=== PATIENT | male | born 1960 | race Hispanic/Latino ===

== ENCOUNTER 2017-07-18 08:07 | Inpatient (IN) | payer OTHER ==
[~2017-07-18] VITALS: Ht 172.7 cm; Wt 60.9 kg
[2017-07-18] VITALS (8 sets, daily range): BP systolic 111–151; BP diastolic 72–97
[2017-07-18] MEDS ORDERED: HYDROMORPHONE 1MG/1ML INJ IV STA (08:33)
[2017-07-18] MEDS ORDERED: ONDANSETRON HCL INJ 2 MG/ML VIAL IV STA ×3 (08:33→13:32)
[2017-07-18] MEDS ORDERED: DIATRIZOATE MEGL/DIATRIZOA SOD 30 ML BTL PO ONE (08:57)
[2017-07-18] MEDS ORDERED: HYDROMORPHONE 2MG/ML INJ IV ONE ×2 (09:00→13:45)
[2017-07-18 09:10] LABS: BASOPHILS % 0.1 % (0.0-1.0); HEMATOCRIT 47.5 % (38.2-49.6); HEMOGLOBIN 16.2 g/dL (14.0-18.0); LYMPHOCYTES # (AUTO) 0.8 (1.0-3.2); LYMPHOCYTES % 5.8 % (18.0-39.1); MEAN CORPUSCULAR HEMOGLOBIN 30.6 pg (28-32); MEAN CORPUSCULAR HGB CONC 34.1 g/dL (31-35); MEAN CORPUSCULAR VOLUME 89.6 fL (81-99); MONOCYTES # (AUTO) 1.2 (0.2-0.8); MONOCYTES % 8.6 % (4.4-11.3); NEUTROPHILS # (AUTO) 11.9 (2.1-6.9); NEUTROPHILS % 85.3 % (38.7-80.0); PLATELET COUNT 393 x10e3/uL (140-360); RED CELL DISTRIBUTION WIDTH 12.6 % (11.7-14.4)
[2017-07-18 09:22] LABS: ALANINE AMINOTRANSFERASE 40 IU/L (0-55); ALBUMIN 3.9 g/dL (3.5-5.0); ALBUMIN/GLOBULIN RATIO 0.9 (0.8-2.0); ALKALINE PHOSPHATASE 98 IU/L (40-150); AMYLASE 13 U/L (25-125); ANION GAP 15.4 mmol/L (8-16); BLOOD UREA NITROGEN 13 mg/dL (7-26); BUN/CREATININE RATIO 21 (6-25); CALCIUM 9.1 mg/dL (8.4-10.2); CARBON DIOXIDE 26 mmol/L (22-29); CHLORIDE 89 mmol/L (98-107); CREATININE, SERUM 0.62 mg/dL (0.72-1.25); EST GLOMERULAR FILTRATION RATE > 60 ML/MIN (60-); GLUCOSE 113 mg/dL (74-118); POTASSIUM 4.4 mmol/L (3.5-5.1); SODIUM 126 mmol/L (136-145)
[2017-07-18 09:25] LABS: LIPASE < 4 U/L (8-78)
[2017-07-18] MEDS: SODIUM CHLORIDE 0.9% 250ML IRRIG IR SCH ×4 (09:30→19:33)
--- NOTE | 2017-07-18 10:20 | Diagnostic Imaging Report ---
PROCEDURE: A single AP view of the chest. COMPARISON: None. INDICATIONS: SWOLLEN ABDOMEN, SHORTNESS OF BREATH FINDINGS: Lines/tubes: Enteric feeding catheter is present with the tip projecting over the expected region of the stomach. Lungs: Elevation of the left hemidiaphragm. Bibasilar atelectasis. Pleura: There is no pleural effusion or pneumothorax. Heart and mediastinum: The heart and the mediastinum are unremarkable. Bones: No acute bony abnormality. Abdomen: Multiple distended loops of colon are present. IMPRESSION: Distended loops of colon, concerning for obstruction. CT abdomen and pelvis may provide additional information for further characterization. Dictated by: Kavon Shepard M.D. on 07/18/2017 at 10:30 Electronically approved by: Kavon Shepard M.D. on 07/18/2017 at 10:30
--- NOTE | 2017-07-18 10:30 | Diagnostic Imaging Report ---
PROCEDURE:X-RAY ABDOMEN - KUB COMPARISON:None. INDICATIONS:NG TUBE PLACEMENT FINDINGS: Enteric feeding catheter with tip projecting over the expected region of the gastric body. Multiple distended loops of colon and small bowel. There are no calcifications projected over the renal shadows, expected course of the ureters or bladder. There are no acute osseous abnormalities. The lung bases are clear. CONCLUSION: Concerns for distal colon obstruction. CT of the abdomen and pelvis may provide additional information for further characterization. Dictated by: Kavon Shepard M.D. on 07/18/2017 at 10:39 Electronically approved by: Kavon Shepard M.D. on 07/18/2017 at 10:39
--- NOTE | 2017-07-18 12:58 | Diagnostic Imaging Report ---
PROCEDURE: CT ABDOMEN AND PELVIS WITH CONTRAST TECHNIQUE: The abdomen and pelvis were scanned utilizing a multidetector helical scanner from the diaphragm to the lesser trochanter after the IV administration of 100 cc of Isovue 370 and the oral administration of dilute Gastrografin. Coronal and sagittal multiplanar reformations were obtained. COMPARISON: None. INDICATIONS: SMALL BOWEL OBSTRUCTION FINDINGS: LOWER THORAX: Atelectatic changes in bilateral lower lobes. Extensive tree in bud opacities involving the right middle and bilateral lower lobes. Bronchial wall thickening, predominantly in the posterior right lower lobe. Eventration of the left hemidiaphragm. HEPATOBILIARY: No focal hepatic lesions. No biliary ductal dilatation. Gallbladder is unremarkable. SPLEEN: No splenomegaly. PANCREAS: No focal masses or ductal dilatation. ADRENALS: No adrenal nodules. KIDNEYS/URETERS: No hydronephrosis, stones, or solid mass lesions. PELVIC ORGANS/BLADDER: Bladder is moderately distended and shows no focal lesions. Dystrophic calcifications in the prostate. PERITONEUM / RETROPERITONEUM: Trace free fluid in the pelvic cul-de-sac LYMPH NODES: No lymphadenopathy. VESSELS: Unremarkable. GI TRACT: Marked dilation of the transverse colon, predominantly at the splenic flexure, measuring approximately 15 cm in diameter. Moderate dilation of the distal ascending colon. The ascending colon is on the upper limit of normal, measuring 6 cm in diameter (series 2, image 57 and sagittal image 36). Marked dilation of multiple small bowel loops involving predominantly the ileum, with maximal measurement of approximately 6.5 cm. The duodenum and jejunum are normal in caliber. The descending colon is decompressed, with a transition point/abrupt beak like narrowing noted in the proximal descending colon (series 2, image 35 and coronal image 61). Swirling of vessels is noted at this location. Stomach is not dilated. There is an enteric tube in place, with tip in the fundus/body. BONES AND SOFT TISSUES: No aggressive lytic lesions. Soft tissues are unremarkable.. IMPRESSION: 1. large bowel obstruction extending to the small bowel, with transition point located in the proximal descending colon. No definite focal masses identified. Swirling of vessels is noted at this location. Findings are suspicious for volvulus. 2. Extensive bilateral lower lobe and right middle lobe tree in bud opacities, consistent with endobronchial spread of infection (including mycobacterial disease) or aspiration Basim Scott M.D. Dictated by: Basim Scott M.D. on 07/18/2017 at 13:07 Electronically approved by: Basim Scott M.D. on 07/18/2017 at 13:07
[2017-07-18] MEDS ORDERED: PIPER-TAZ 3.375 GM 50 ML IV STA (13:49)
[2017-07-18] MEDS ORDERED: ONDANSETRON HCL INJ 2 MG/ML VIAL IV PRN (14:00)
[2017-07-18] MEDS ORDERED: IOPAMIDOL 370 MG/ML 200 ML INFUS..BTL INJ ONE (14:32)
[2017-07-18] MEDS ORDERED: SODIUM CHLORIDE 0.9% 50ML 50 ML ONE ×3 (14:32→22:12)
[2017-07-18] MEDS ORDERED: RISPERIDONE1 MG PO (15:43)
[2017-07-18] MEDS ORDERED: LOXAPINE10 MG PO (15:43)
[2017-07-18] MEDS ORDERED: METOPROLOL TARTRATE INJ 1 MG/ML VIAL IV PRN (15:45)
[2017-07-18] MEDS: HYDROMORPHONE 2MG/ML INJ IV PRN (16:05)
--- OUTSIDE RECORDS SUMMARY | 2017-07-18 16:05 | XMS REPORT ---
Author Author [facility] Address Unknown Phone Unavailable Care Team Providers Care Cruise Guide Name Role Phone BLAKE WHITE Unavailable Unavailable Problems This patient has no known problems. Allergies, Adverse Reactions, Alerts This patient has no known allergies or adverse reactions. Medications This patient has no known medications. Results Test Description Test Time Test Comments Text Results Atomic Results Result Comments ABDOMEN-1VIEW (KUB) [place] [address] Patient Name: TRENT RIVERA MR #: [id number] : 1960 Age/Sex: 56/M Req #: [id number] Adm Physician: Ordered by: BLAKE WHITE MD Report #: [id number] Location: ER Room/Bed: Procedure: [id number] DX/ABDOMEN-1VIEW (KUB) Exam Date: 07/18/17 Exam Time: 0945 REPORT STATUS: Signed PROCEDURE: X-RAY ABDOMEN - KUB COMPARISON: None. INDICATIONS: NG TUBE PLACEMENT FINDINGS: Enteric feeding catheter with tip projecting over the expected region of the gastric body. Multiple distended loops of colon and small bowel. There are no calcifications projected over the renal shadows, expected course of the ureters or bladder. There are no acute osseous abnormalities. The lung bases are clear. CONCLUSION: Concerns for distal colon obstruction. CT of the abdomen and pelvis may provide additional information for further characterization. Dictated by: Winston Jones M.D. on 07/18/2017 at 10:39 Electronically approved by: Winston Jones M.D. on 07/18/2017 at 10:39 Dictated By: WINSTON JONES MD 1039 Transcribed By: DAISY on 07/18/17 1039 COPY TO: BLAKE WHITE MD CHEST SINGLE (PORTABLE) [place] [address] Patient Name: TRENT RIVERA MR #: [id number] : 1960 Age/Sex: 56/M Req #: [id number] Adm Physician: Ordered by: BLAKE WHITE MD Report #: [id number] Location: ER Room/Bed: Procedure: [id number] DX/CHEST SINGLE (PORTABLE) Exam Date: 07/18/17 Exam Time: 0945 REPORT STATUS: Signed PROCEDURE: A single AP view of the chest. COMPARISON: None. INDICATIONS: SWOLLEN ABDOMEN, SHORTNESS OF BREATH FINDINGS: Lines/tubes: Enteric feeding catheter is present with the tip projecting over the expected region of the stomach. Lungs: Elevation of the left hemidiaphragm. Bibasilar atelectasis. Pleura: There is no pleural effusion or pneumothorax. Heart and mediastinum: The heart and the mediastinum are unremarkable. Bones: No acute bony abnormality. Abdomen: Multiple distended loops of colon are present. IMPRESSION: Distended loops of colon, concerning for obstruction. CT abdomen and pelvis may provide additional information for further characterization. Dictated by: Winston Jones M.D. on 07/18/2017 at 10:30 Electronically approved by: Winston Jones M.D. on at 10:30 Dictated By: WINSTON JONES MD 1030 Transcribed By: DAISY on 07/18/17 1030 COPY TO: BLAKE WHITE MD CT ABDOMEN/PELVIS W [facility] [address] [place] [address] Patient Name: TRENT RIVERA MR #: [id number] : 1960 Age/Sex: 56/M Req #: [id number] Adm Physician: Ordered by: BLAKE WHITE MD Report #: [id number] Location: ER Room/Bed: Procedure: [id number] CT/CT ABDOMEN/PELVIS W Exam Date: 07/18/17 Exam Time: 1206 REPORT STATUS: Signed PROCEDURE: CT ABDOMEN AND PELVIS WITH CONTRAST TECHNIQUE: The abdomen and pelvis were scanned utilizing a multidetector helical scanner from the diaphragm to the lesser trochanter after the IV administration of 100 cc of Isovue 370 and the oral administration of dilute Gastrografin. Coronal and sagittal multiplanar reformations were obtained. COMPARISON: None. INDICATIONS: SMALL BOWEL OBSTRUCTION FINDINGS: LOWER THORAX: Atelectatic changes in bilateral lower lobes. Extensive tree in bud opacities involving the right middle and bilateral lower lobes. Bronchial wall thickening, predominantly in the posterior right lower lobe. Eventration of the left hemidiaphragm. HEPATOBILIARY: No focal hepatic lesions. No biliary ductal dilatation. Gallbladder is unremarkable. SPLEEN : No splenomegaly. PANCREAS: No focal masses or ductal dilatation. ADRENALS: No adrenal nodules. KIDNEYS/URETERS: No hydronephrosis, stones, or solid mass lesions. PELVIC ORGANS/BLADDER: Bladder is moderately distended and shows no focal lesions. Dystrophic calcifications in the prostate. PERITONEUM / RETROPERITONEUM: Trace free fluid in the pelvic cul-de-sac LYMPH NODES: No lymphadenopathy. VESSELS: Unremarkable. GI TRACT: Marked dilation of the transverse colon, predominantly at the splenic flexure, measuring approximately 15 cm in diameter. Moderate dilation of the distal ascending colon. The ascending colon is on the upper limit of normal, measuring 6 cm in diameter (series 2, image 57 and sagittal image 36). Marked dilation of multiple small bowel loops involving predominantly the ileum, with maximal measurement of approximately 6.5 cm. The duodenum and jejunum are normal in caliber. The descending colon is decompressed, with a transition point/abrupt beak like narrowing noted in the proximal descending colon (series 2, image 35 and coronal image 61). Swirling of vessels is noted at this location. Stomach is not dilated. There is an enteric tube in place, with tip in the fundus/body. BONES AND SOFT TISSUES: No aggressive lytic lesions. Soft tissues are unremarkable.. IMPRESSION: 1. large bowel obstruction extending to the small bowel, with transition point located in the proximal descending colon. No definite focal masses identified. Swirling of vessels is noted at this location. Findings are suspicious for volvulus. 2. Extensive bilateral lower lobe and right middle lobe tree in bud opacities, consistent with endobronchial spread of infection (including mycobacterial disease) or aspiration Sherita Scott M.D. Dictated by: Sherita Scott M.D. on 07/18/2017 at 13:07 Electronically approved by: Sherita Scott M.D. on 2017 at 13:07 Dictated By: SHERITA SCOTT MD 1307 Transcribed By: DAISY on 1307 COPY TO: BLAKE WHITE MD
[2017-07-18] MEDS: SODIUM CHLORIDE 0.9% 1000ML 1,000 ML IV SCH ×2 (17:56→23:00)
[2017-07-18] MEDS: FAMOTIDINE 20 MG/2 ML VIAL IV SCH (17:57)
[2017-07-18] MEDS ORDERED: ONDANSETRON HCL INJ 2 MG/ML VIAL ONE (18:22)
[2017-07-18] MEDS ORDERED: ROCURONIUM BROMIDE 10 MG/ML 5ML VIAL ONE (18:22)
[2017-07-18] MEDS ORDERED: SUCCINYLCHOLINE 200 MG/10 ML SYR ONE (18:22)
[2017-07-18] MEDS ORDERED: LIDOCAINE HCL 2% LOCAL INJ 5 ML SDV VIAL INJ ONE (18:22)
[2017-07-18] MEDS ORDERED: DEXAMETHASONE SOD PHOS INJ 4 MG/ML VIAL ONE (18:22)
[2017-07-18] MEDS ORDERED: PROPOFOL IV EMULSION 10 MG/ML 20 ML VIAL ONE (18:22)
[2017-07-18] MEDS ORDERED: SEVOFLURANE INHAL SOLN 250 ML PEN BTL ONE (18:22)
[2017-07-18] MEDS ORDERED: FENTANYL CITRATE/PF 100MCG/2 ML INJ ONE (18:30)
[2017-07-18] MEDS ORDERED: MIDAZOLAM HCL 2 MG/2 ML VIAL ONE ×2 (18:30→22:17)
[2017-07-18] MEDS ORDERED: KETAMINE HCL INJ 50 MG/ML 10 ML VIAL ONE (18:30)
[2017-07-18] MEDS ORDERED: HEPARIN SOD/SOD CHLORIDE 1,000 ML ONE (18:44)
[2017-07-18] MEDS ORDERED: CEFOXITIN 1GM/ DEXTROSE 50ML 50 ML IV ONE (19:06)
[2017-07-18] MEDS ORDERED: SODIUM CHLORIDE 0.9% 250ML 0 ML ONE (19:46)
[2017-07-18] MEDS ORDERED: VECURONIUM BROMIDE FOR INJ 20 MG VIAL ONE (20:07)
[2017-07-18] MEDS ORDERED: ALBUMIN HUMAN 50 ML IV ONE (20:18)
[2017-07-18 21:52] LABS: ABG HCO3 25 mmol/L (23-28); ABG PCO2 50 mmHg (41-51); ABG PH 7.31 (7.31-7.41); ABG PO2 151 mmHg (80-105)
[2017-07-18] MEDS: PROPOFOL IV EMULSION 10 MG/ML 50 ML VIAL IV PRN (22:00)
[2017-07-18] MEDS ORDERED: PROPOFOL IV EMULSION 10MG/ML 100 ML ONE (22:17)
--- NOTE | 2017-07-18 22:27 | Diagnostic Imaging Report ---
EXAM: CHEST SINGLE (PORTABLE), AP 1 view ORDER DATE: 07/18/2017 9:59 PM Time stamp on exam: 2214 hours INDICATION: Central line placement COMPARISON: AP view of the chest June 17, 2017 at 0958 hours FINDINGS: LINES/TUBES: Interval placement of right internal jugular vein central line with tip terminating in the expected location of the distal superior vena cava. The nasal/orogastric tube terminates in the expected location of the fundus of the stomach. Interval placement of endotracheal tube that terminates 4.5 cm above the evelyn. LUNGS: Stable bilateral interstitial thickening. Mild left lower lobe atelectasis. PLEURA: No effusions or pneumothorax. HEART AND MEDIASTINUM: Normal size and contour. BONES AND SOFT TISSUES: Interval decompression of the stomach. Midline abdominal cynthia. IMPRESSION: 1. Interval placement of right internal jugular vein central line. No pneumothorax. The endotracheal tube terminates 4.5 cm above the evelyn. 2. Stable appearance of the lungs. 3. Interval decompression of the stomach. Signed by: Dr. Kelsea James M.D. on 07/18/2017 10:23 PM
[2017-07-19] VITALS (84 sets, daily range): BP systolic 93–139; BP diastolic 50–76
[2017-07-19] MEDS ORDERED: VANCOMYCIN 1GM/NS 250 ML 250 ML IV ONE (01:15)
[2017-07-19 01:28] LABS: ABG HCO3 22 mmol/L (23-28); ABG PCO2 46 mmHg (41-51); ABG PH 7.29 (7.31-7.41); ABG PO2 84 mmHg (80-105)
--- NOTE | 2017-07-19 01:30 | Consultation ---
DATE OF CONSULTATION: July 18, 2017 CHIEF COMPLAINT: Abdominal pain. HISTORY OF PRESENT ILLNESS: Patient is 56-year-old male with history of schizophrenic disorder, complaining of 2-day history of abdominal distention and pain with nausea, no vomiting. He has decreased bowel movement. No fever or chills. The patient gave a history of perforated colon requiring colostomy, which was reversed a few years back. PAST MEDICAL HISTORY: As mentioned is positive for schizophrenia. SURGICAL HISTORY: Positive for colon perforation with colostomy and reversal. ALLERGIES: HE HAS NO KNOWN DRUG ALLERGIES. SOCIAL HABITS: No smoking or alcohol abuse. REVIEW OF SYSTEMS: No current chest pain or shortness of breath. PHYSICAL EXAMINATION: VITAL SIGNS: Afebrile. Blood pressure 130/80 with a pulse 120. GENERAL: He is awake and alert, responsive, in moderate discomfort. HEENT: Sclerae are nonicteric. NECK: Supple. LUNGS: Clear. HEART: Regular rate and rhythm. No murmurs. ABDOMEN: Distended, tympanic with some guarding voluntarily, but no focal tenderness or rebound. EXTREMITIES: Without cyanosis or edema. LABORATORY DATA: White cell count is 14, hemoglobin of 16. Creatinine of 0.6. Liver function tests, bilirubin of 2.3, lipase is less than 4. CT of the abdomen showed colonic obstruction with proximal transverse colonic diameter to 15 cm. Possible aspiration pneumonia. ASSESSMENT: Colonic obstruction with possible aspiration pneumonia. PLAN: N.p.o. NG tube decompression. Patient may need exploratory laparotomy and colostomy. Thank you. Job#: [id number]
[2017-07-19] MEDS: FENTANYL CITRATE/PF 100MCG/2 ML INJ IV PRN ×2 (02:00→04:00)
[2017-07-19] MEDS: SODIUM CHLORIDE 0.9% 250ML IRRIG IR SCH ×7 (02:15→19:00)
[2017-07-19 02:55] LABS: ABG HCO3 25 mmol/L (23-28); ABG PCO2 40 mmHg (41-51); ABG PO2 95 mmHg (80-105)
[2017-07-19] MEDS: HYDROMORPHONE 2MG/ML INJ IV PRN ×2 (05:30→11:57)
[2017-07-19 05:32] LABS: BASOPHILS % 0.2 % (0.0-1.0); HEMATOCRIT 43.8 % (38.2-49.6); HEMOGLOBIN 14.8 g/dL (14.0-18.0); LYMPHOCYTES # (AUTO) 0.6 (1.0-3.2); LYMPHOCYTES % 5.9 % (18.0-39.1); MEAN CORPUSCULAR HEMOGLOBIN 30.6 pg (28-32); MEAN CORPUSCULAR HGB CONC 33.8 g/dL (31-35); MEAN CORPUSCULAR VOLUME 90.5 fL (81-99); MONOCYTES # (AUTO) 0.9 (0.2-0.8); MONOCYTES % 8.2 % (4.4-11.3); NEUTROPHILS # (AUTO) 9.4 (2.1-6.9); NEUTROPHILS % 85.5 % (38.7-80.0); PLATELET COUNT 344 x10e3/uL (140-360); RED BLOOD COUNT 4.84 x10e6/uL (4.3-5.7); RED CELL DISTRIBUTION WIDTH 12.8 % (11.7-14.4)
[2017-07-19 05:45] LABS: INR 1.18; PROTHROMBIN TIME 15.6 seconds (11.9-14.5)
[2017-07-19 05:46] LABS: PARTIAL THROMBOPLASTIN TIME 33.5 seconds (23.8-35.5)
[2017-07-19 05:52] LABS: ALANINE AMINOTRANSFERASE 23 IU/L (0-55); ALBUMIN 2.7 g/dL (3.5-5.0); ALKALINE PHOSPHATASE 55 IU/L (40-150); ANION GAP 13.1 mmol/L (8-16); BILIRUBIN,DIRECT 0.7 mg/dL (0.0-5.0); BLOOD UREA NITROGEN 7 mg/dL (7-26); BUN/CREATININE RATIO 13 (6-25); CALCIUM 7.4 mg/dL (8.4-10.2); CARBON DIOXIDE 25 mmol/L (22-29); CHLORIDE 97 mmol/L (98-107); CREATININE, SERUM 0.53 mg/dL (0.72-1.25); EST GLOMERULAR FILTRATION RATE > 60 ML/MIN (60-); GLUCOSE 82 mg/dL (74-118); LACTATE DEHYDROGENASE 165 IU/L (125-220); MAGNESIUM 1.5 MG/DL (1.3-2.1); POTASSIUM 4.1 mmol/L (3.5-5.1); SODIUM 131 mmol/L (136-145)
[2017-07-19 06:12] LABS: THYROID STIMULATING HORMONE 2.101 uIU/mL (0.350-4.940)
--- NOTE | 2017-07-19 06:38 | Diagnostic Imaging Report ---
EXAM: CHEST SINGLE (PORTABLE), AP 1 view ORDER DATE: 07/19/2017 5:00 AM Time stamp on exam: 0559 hours INDICATION: Pneumonia COMPARISON: AP view of the chest July 18, 2017 FINDINGS: LINES/TUBES: Stable endotracheal tube, right internal jugular vein central line and nasal/orogastric tube. LUNGS: Mild bibasilar atelectasis and interstitial thickening. PLEURA: No effusions or pneumothorax. HEART AND MEDIASTINUM: Normal size and contour. BONES AND SOFT TISSUES: Midline abdominal cynthia. IMPRESSION: No interval change. Signed by: Dr. Kelsea James M.D. on 07/19/2017 6:35 AM
[2017-07-19] MEDS ORDERED: VANCOMYCIN 1GM/NS 250 ML 250 ML ONE ×2 (07:04→07:16)
[2017-07-19] MEDS ORDERED: CEFOXITIN SOD 1 GM VIAL ONE (07:04)
[2017-07-19] MEDS: PIPER-TAZ 3.375 GM 50 ML IV SCH ×3 (07:21→22:01)
[2017-07-19] MEDS: CEFOXITIN 1GM/ DEXTROSE 50ML 50 ML IV SCH ×2 (07:21)
[2017-07-19] MEDS: IPRATROPIUM BROMIDE 0.02% 2.5 ML NEB NEB SCH ×4 (08:11→23:25)
[2017-07-19] MEDS: FAMOTIDINE 20 MG/2 ML VIAL IV SCH ×2 (09:00→16:55)
[2017-07-19] MEDS: PROPOFOL IV EMULSION 10 MG/ML 50 ML VIAL IV PRN (09:20)
[2017-07-19] MEDS ORDERED: PROPOFOL IV EMULSION 10MG/ML 100 ML ONE (09:23)
[2017-07-19] MEDS: SODIUM CHLORIDE 0.9% 1000ML 1,000 ML IV SCH (10:15)
[2017-07-19] MEDS ORDERED: ACETAMINOPHEN 650 MG SUPP PR ONE (11:34)
[2017-07-19] MEDS ORDERED: DEXTROSE 5%/0.9% SOD CHL 1,000 ML IV ONE (11:35)
[2017-07-19] MEDS: ACETAMINOPHEN 650 MG SUPP PR PRN ×2 (11:35→17:00)
[2017-07-19] MEDS: DEXTROSE 5%/0.9% SOD CHL 1,000 ML IV SCH ×2 (11:41→19:00)
--- NOTE | 2017-07-19 12:35 | Operative Report ---
DATE OF PROCEDURE: July 18, 2017 PREOPERATIVE DIAGNOSIS: Left colonic obstruction with massive proximal colon and small bowel dilatation. POSTOPERATIVE DIAGNOSIS: Left colonic obstruction with massive proximal colon and small bowel dilatation. OPERATIVE PROCEDURES: Exploratory laparotomy, left colectomy with transverse colostomy, and lysis of adhesions. SHOP TEACHER: None. ANESTHESIA: General endotracheal, . INDICATIONS: A 56-year-old male with 2-week history of progressive abdominal distention and decreased oral intake. The patient was seen in the emergency room with CT CAT showing massive dilatations of the transverse colon and right colon with narrowing of the descending colon consistent with obstruction. NG tube inserted without improvement of the abdominal distention. The patient's sister and family consented for the exploratory laparotomy and bowel resection and colostomy. PROCEDURE FINDINGS: Massive dilatation of the colon and small bowel with decompression of the stomach. The point of obstruction is in the mid descending colon from adhesions from prior surgery. There is evidence of volvulus of the small bowel from adhesion. DESCRIPTION OF PROCEDURE: The patient was brought to the OR and intubated. The abdomen was then prepped with alcohol and draped in sterile fashion. A midline incision is made from the xiphoid process down to the pubic symphysis. Adhesion from prior surgery is encountered and meticulous Metzenbaum scissor dissection carried out to free the adhesion from anterior abdominal wall. The large and small intestine is noted to be massively dilated with point of obstruction seem to be in the distal left colon as demonstrated on CT scan. We exteriorized the left and transverse colon out of the abdominal cavity. The diameter of the transverse colon is at least 20 cm. No evidence of ischemia of the bowel wall; however, this suggests a chronic dilatation. The small bowel was noted to be adherent down to the pelvis and the left retroperitoneal area and with scissors lysis of adhesion, we proceeded to free all adhesions to the pelvis and retroperitoneum and the bowel is then ran in a retrograde fashion from the ileocecal wall in a backward direction revealing a high-grade obstruction from adhesion to the retroperitoneum, which is lysed and all the adhesion in the small bowel is freed to the ligament of Treitz. A serosal tear in the small bowel is repaired with running 3-0 Vicryl. Colon is then ran from the proximal transverse colon, which is mildly dilated to the massively dilated transverse colon and splenic flexure down to the point of obstruction in the mid descending colon. At this point, the decision is made to perform left colectomy and colostomy. Using ABHI stapler, the descending colon distal to the point of obstruction where the diameter of the colon is only mildly dilated and at this point, an opening is made in the mesentery of the colon and a ABHI stapler is inserted and fired, transecting the left colon at the distal descending colon. The mesentery to the left colon is then taken close to the bowel wall using a LigaSure instrument all the way to the proximal transverse colon. At this point, where the bowel is not so massively dilated, the transverse colon is transected again with same ABHI stapler and the specimen delivered off the field. We proceeded to irrigate the peritoneal cavities. We placed the small bowel in its natural location. A left upper quadrant colostomy site is then selected and a circular piece of skin and subcutaneous tissue is then removed from the left upper quadrant through the lateral aspect of the rectus muscle. The anterior and posterior fascia are opened in a cruciate fashion and stretch opened with the USA retractors. The transverse colon is then exteriorized through the left upper quadrant ostomy site and we proceeded to close the midline fascia with running #1 PDS, reinforced with interrupted 0 Vicryl and the skin with cynthia. The transverse colostomy is then matured by taking off the staple line and kenny the colonic edge to the skin with interrupted 3-0 Vicryl stitches. Colostomy appliance is inserted. Patient is transported intubated to recovery room. Estimated blood loss 30 mL. Job#: [id number] VAS
[2017-07-19] MEDS ORDERED: CEFOXITIN SOD 1 GM VIAL IV SCH (13:00)
--- NOTE | 2017-07-19 13:29 | Consultation ---
DATE OF CONSULTATION: July 18, 2017 PULMONARY/CRITICAL CARE MEDICINE CONSULTATION REFERRING PHYSICIAN: Dr. Fox. REASON FOR REFERRAL: Pneumonitis, preoperative evaluation. HISTORY: Mr. Santos is a pleasant, 56-year-old gentleman with pneumonitis. The patient with some kind of abdominal surgery more than 10 years ago. The patient thereafter had good course. However, he was having more and more constipation recently. He took some Lactulose a couple of weeks ago to break through some constipation. However, symptoms reoccurred. He finally, for the last 2 days, has been having worse distention. No bowel movements and difficulty passing gas. He came into the hospital. Abdominal x-ray showed massive dilatation of the colon. The patient was seen to have a very firm abdomen. CT corroborated the distinction of largely large bowel obstruction. The patient went to the operating room. PAST MEDICAL HISTORY: Schizophrenia, possible hypertension. MEDICATIONS: Medication list reviewed per electronic record. ALLERGIES: PER ELECTRONIC MEDICAL RECORDS. SOCIAL HISTORY: No active smoking. No alcohol and no drugs reported. FAMILY HISTORY: Noncontributory to this. REVIEW OF SYSTEMS: Cannot get reliably as he is about to go for operation. PHYSICAL EXAMINATION VITAL SIGNS: Stable off pressors. Some tachycardia. GENERAL: Looks pale, some pain. HEENT: Normocephalic, atraumatic. NECK: Supple. Throat midline. LUNGS: Bilateral air entry, few rhonchi, few crackles, bilateral air entry. CARDIOVASCULAR: S1 and S2. No murmurs, rubs or gallops. ABDOMEN: Firm, no distinct masses, limited. EXTREMITIES: No cyanosis, clubbing or edema. INTEGUMENT: No rash and no purpura. LABORATORY DATA: Reviewed per electronic record. Normal kidney function. IMPRESSION 1. Large bowel obstruction, under evaluation. 2. Preoperative pulmonary evaluation. 3. Significant pneumonitis. 4. History of schizophrenia. 5. Hyponatremia. 6. Possible hypertension, by history. PLAN: For now, continue current care. The patient is expectant for surgery shortly. Will follow up afterwards. If appropriate, DVT prophylaxis. Antibiotics. Will follow along closely. The patient remains very ill conditioned. Thank you very much, Dr. Fox, for allowing me to participate in the care of Mr. Santos. Do not hesitate to contact me if I can help in any way. Job#: [id number]
[2017-07-19] MEDS ORDERED: HYDROMORPHONE 2MG/ML INJ IV PRN (16:00)
--- NOTE | 2017-07-19 17:17 | Progress Note ---
DATE: July 19, 2017 PULMONARY MEDICINE FOLLOWUP SUBJECTIVE: Mr. Santos was seen and examined at the bedside. He still has some fevers. Temperature maximum 102.0 recorded. He remains while suctioned without too much output. Abdomen remained less distended. He is on IV fluids at 150 mL per hour. Propofol 50 mcg minute, 1.8 liters in and 0.9 liters out. Heart rate has slowly been improving, trending down now to 90s range. He remains intubated on ventilator. He remains with large amount of secretions but decreased from yesterday. After weaning, it was seen that we could give him an extubation trial. REVIEW OF SYSTEMS: No ability to get as he was intubated. OBJECTIVE VITAL SIGNS: Noted per electronic record, stable. He remains off pressors. LUNGS: Bilateral air entry, few rhonchi. EXTREMITIES: No edema. LABORATORY DATA: Potassium 4.1, BUN 7, creatinine 0.5, white count 11, hematocrit 44, platelets 344,000, albumin 2.1. IMPRESSION AND PLAN 1. Acute respiratory failure, intubated/extubated. 2. Bilateral pneumonitis, acute versus chronic. 3. Heavy smoker. 4. Schizophrenia by history. 5. Protein calorie malnutrition, severe. 6. Postoperative state, status post partial colectomy for colonic obstruction with colostomy creation. 7. Continue current treatment. 8. Extubated as noted. 9. Continue antibiotics. 10. Follow up recent cultures. 11. Antibiotics are indicated for the pneumonia and also for some perioperative prophylaxis if needed. 12. The patient will continue with aggressive pulmonary toileting. 13. He will remain with NG tube in place on intermittent suctioning and he will remain on some IV fluids. Greater than 30 minutes of direct care today, multiple evaluations. Job#: [id number]
[2017-07-19] MEDS: ACETAMINOPHEN 325 MG TAB PO PRN (21:23)
[2017-07-20] MEDS: DEXTROSE 5%/0.9% SOD CHL 1,000 ML IV SCH ×4 (01:52→16:20)
[2017-07-20] MEDS: SODIUM CHLORIDE 0.9% 250ML IRRIG IR SCH ×4 (01:53→12:23)
[2017-07-20] MEDS: IPRATROPIUM BROMIDE 0.02% 2.5 ML NEB NEB SCH ×6 (02:00→23:05)
[2017-07-20 05:47] VITALS: BP 117/76
[2017-07-20] MEDS: PIPER-TAZ 3.375 GM 50 ML IV SCH ×3 (05:52→22:25)
--- NOTE | 2017-07-20 06:27 | Diagnostic Imaging Report ---
EXAM: CHEST SINGLE (PORTABLE), AP 1 view ORDER DATE: 07/20/2017 5:00 AM Time stamp on exam: 0548 hours INDICATION: Pneumonia COMPARISON: AP view of the chest July 19, 2017 FINDINGS: LINES/TUBES: Interval removal of endotracheal tube. Stable position of nasal/orogastric tube and right internal jugular vein central line. LUNGS: Mild bibasilar atelectasis and interstitial thickening. PLEURA: No effusions or pneumothorax. HEART AND MEDIASTINUM: Normal size and contour. BONES AND SOFT TISSUES: No acute findings. IMPRESSION: Interval removal of endotracheal tube, otherwise no significant interval change in appearance of the chest. Signed by: Dr. Kelsea James M.D. on 07/20/2017 6:24 AM
[2017-07-20 06:29] LABS: BASOPHILS % 0.1 % (0.0-1.0); HEMATOCRIT 39.2 % (38.2-49.6); LYMPHOCYTES # (AUTO) 0.7 (1.0-3.2); LYMPHOCYTES % 4.7 % (18.0-39.1); MEAN CORPUSCULAR HGB CONC 33.2 g/dL (31-35); MEAN CORPUSCULAR VOLUME 90.5 fL (81-99); MONOCYTES # (AUTO) 1.3 (0.2-0.8); MONOCYTES % 8.4 % (4.4-11.3); NEUTROPHILS # (AUTO) 13.4 (2.1-6.9); NEUTROPHILS % 86.5 % (38.7-80.0); PLATELET COUNT 273 x10e3/uL (140-360); RED BLOOD COUNT 4.33 x10e6/uL (4.3-5.7)
[2017-07-20 07:04] LABS: ALANINE AMINOTRANSFERASE 18 IU/L (0-55); ALBUMIN 2.2 g/dL (3.5-5.0); ALKALINE PHOSPHATASE 54 IU/L (40-150); ANION GAP 8.1 mmol/L (8-16); BILIRUBIN,DIRECT 0.6 mg/dL (0.0-5.0); BLOOD UREA NITROGEN 5 mg/dL (7-26); BUN/CREATININE RATIO 10 (6-25); CALCIUM 7.5 mg/dL (8.4-10.2); CARBON DIOXIDE 30 mmol/L (22-29); CHLORIDE 103 mmol/L (98-107); CREATININE, SERUM 0.49 mg/dL (0.72-1.25); EST GLOMERULAR FILTRATION RATE > 60 ML/MIN (60-); GLUCOSE 113 mg/dL (74-118); POTASSIUM 3.1 mmol/L (3.5-5.1); SODIUM 138 mmol/L (136-145)
[2017-07-20 08:00] VITALS: BP 124/75
[2017-07-20] MEDS: FAMOTIDINE 20 MG/2 ML VIAL IV SCH ×2 (08:50→16:40)
[2017-07-20 08:59] VITALS: BP 124/75
[2017-07-20] MEDS ORDERED: POTASSIUM CHLORIDE 100 ML IV ONE (10:00)
[2017-07-20 10:22] LABS: BILIRUBIN,URINE NEGATIVE (NEGATIVE); CLARITY,URINE CLEAR (CLEAR); COLOR,URINE YELLOW (YELLOW); KETONES,URINE TRACE (NEGATIVE); LEUKOCYTE ESTERASE ,URINE NEGATIVE (NEGATIVE); NITRITE,URINE NEGATIVE (NEGATIVE); URINE UROBILINOGEN 0.2 mg/dL (0.2 - 1)
[2017-07-20 10:23] LABS: PROTEIN,URINE DIPSTICK TRACE (NEGATIVE)
[2017-07-20 10:38] LABS: RBC,URINE 0-5 /HPF (0-5); WBC,URINE (MAN) 0-5 /HPF (0-5)
[2017-07-20 11:45] VITALS: BP 126/82
[2017-07-20 13:22] LABS: HIV 1&2 AB SCREEN NON-REACTIVE (NONREACTIVE)
[2017-07-20 16:02] VITALS: BP 130/82
[2017-07-20 20:00] VITALS: BP 130/82
[2017-07-21] VITALS (7 sets, daily range): BP systolic 118–134; BP diastolic 70–94
[2017-07-21] MEDS: IPRATROPIUM BROMIDE 0.02% 2.5 ML NEB NEB SCH ×2 (02:05→08:00)
--- NOTE | 2017-07-21 03:33 | Progress Note ---
DATE: July 20, 2017 PULMONARY MEDICINE PROGRESS NOTE SUBJECTIVE: Mr. Santos was seen and examined at the bedside; 3.7 L in, 1.9 L out. He was on 150 mL of IV fluid overnight. Temperature to 102.2 recorded. Oxygen saturation 95% on 2 L per minute by nasal cannula. Patient with NG tube coming out and he is started on ice chips. REVIEW OF SYSTEMS: No headaches, no rash. OBJECTIVE VITAL SIGNS: Afebrile. Vital signs noted per the chart record. GENERAL: No acute distress. Alert, calm, slight hoarseness in the voice. HEENT: Normocephalic and atraumatic. NECK: Supple. Throat midline. LUNGS: Bilateral air entry, rare rhonchi. CARDIOVASCULAR: S1, S2. No murmurs, rubs, or gallops. ABDOMEN: Soft and nontender. EXTREMITIES: No clubbing, no cyanosis. There is no edema. INTEGUMENT: No rash, no purpura. LABS: Potassium 2.1, creatinine 0.5, white count 15, hematocrit 39. HIV negative. Albumin 2.2. IMPRESSIONS 1. Postoperative state, status post partial colectomy with ostomy creation. 2. Admit for high-grade bowel obstruction. 3. Hypokalemia. 4. Pneumonia, more chronic than acute. 5. Suspected severe protein calorie malnutrition. 6. fever. PLAN 1. Follow up closely. 2. We will get the Cruz out. 3. Continue IV fluids, but we will decrease the rate. 4. Repeat labs in the morning. 5. Give a lot of potassium. 6. Patient will get mobilization as needed. 7. NG tube to come out and we will follow up on ice chips. 8. We will consider escalating DVT prophylaxis in the next day or so. Job#: [id number]
[2017-07-21] MEDS: PIPER-TAZ 3.375 GM 50 ML IV SCH ×3 (06:07→22:00)
--- NOTE | 2017-07-21 06:17 | Diagnostic Imaging Report ---
EXAM: CHEST SINGLE (PORTABLE), AP 1 view ORDER DATE: 07/21/2017 5:00 AM Time stamp on exam: 0457 hours INDICATION: Pneumonia COMPARISON: AP view of the chest July 20, 2017 FINDINGS: LINES/TUBES: Stable position of right internal jugular vein central line. Interval removal of nasal/orogastric tube. LUNGS: Interstitial thickening and predominantly left lower lobe atelectasis. PLEURA: Stable elevation of the left hemidiaphragm. HEART AND MEDIASTINUM: Normal size and contour. BONES AND SOFT TISSUES: Midline surgical cynthia. Interval increased distention of partially visualized bowel. IMPRESSION: Interval removal of nasal/orogastric tube, otherwise no significant interval change in appearance of the chest. Partially visualized upper abdomen suggest worsening ileus. Signed by: Dr. Kelsea James M.D. on 07/21/2017 6:13 AM
[2017-07-21 06:25] LABS: BASOPHILS % 0.1 % (0.0-1.0); HEMATOCRIT 39.2 % (38.2-49.6); HEMOGLOBIN 13.1 g/dL (14.0-18.0); LYMPHOCYTES # (AUTO) 1.1 (1.0-3.2); LYMPHOCYTES % 4.5 % (18.0-39.1); MEAN CORPUSCULAR HEMOGLOBIN 30.4 pg (28-32); MEAN CORPUSCULAR HGB CONC 33.4 g/dL (31-35); MONOCYTES # (AUTO) 1.6 (0.2-0.8); MONOCYTES % 6.6 % (4.4-11.3); NEUTROPHILS # (AUTO) 21.2 (2.1-6.9); PLATELET COUNT 295 x10e3/uL (140-360); RED BLOOD COUNT 4.31 x10e6/uL (4.3-5.7)
[2017-07-21 06:43] LABS: ANION GAP 10.2 mmol/L (8-16); BLOOD UREA NITROGEN 6 mg/dL (7-26); BUN/CREATININE RATIO 12 (6-25); CALCIUM 7.8 mg/dL (8.4-10.2); CARBON DIOXIDE 27 mmol/L (22-29); CHLORIDE 99 mmol/L (98-107); CREATININE, SERUM 0.49 mg/dL (0.72-1.25); EST GLOMERULAR FILTRATION RATE > 60 ML/MIN (60-); GLUCOSE 93 mg/dL (74-118); MAGNESIUM 1.6 MG/DL (1.3-2.1); POTASSIUM 3.2 mmol/L (3.5-5.1); SODIUM 133 mmol/L (136-145)
[2017-07-21 07:46] LABS: BAND NEUTROPHILS % (MANUAL) 3 %; LYMPHOCYTES % (MANUAL) 3 % (19-48); MONOCYTES % (MANUAL) 4 % (3.4-9.0); NEUTROPHILS % (MANUAL) 89 % (40-74)
[2017-07-21 07:47] LABS: ANISOCYTOSIS SLIGHT; PLATELET ESTIMATE ADEQUATE; PLATELET MORPHOLOGY COMMENT FEW LARGE; RBC MORPHOLOGY COMMENT NORMAL
--- NOTE | 2017-07-21 08:11 | Diagnostic Imaging Report ---
PROCEDURE:ABDOMEN-1VIEW (KUB) TECHNIQUE:Supine AP abdomen INDICATION:Obstruction COMPARISON:Patients [facility], CT, CT ABDOMEN/PELVIS W, 07/18/2017, 12:02. FINDINGS: NG tube with first portion of the duodenum or gastric antrum. Diffuse distention of small and large bowel loops with bowel wall thickening. No conspicuous bowel wall pneumatosis. Midline soft tissue surgical cynthia. Intact skeleton. CONCLUSION: Diffuse gaseous distention of the bowel suggesting postoperative ileus given interval surgery relative to July 18. Increased nonspecific bowel wall thickening relative to the CT from July 18, 2017. Dictated by: Forest Cagle M.D. on 07/21/2017 at 8:20 Electronically approved by: Forest Cagle M.D. on 07/21/2017 at 8:20
[2017-07-21] MEDS: FAMOTIDINE 20 MG/2 ML VIAL IV SCH ×2 (09:00→17:26)
[2017-07-21] MEDS ORDERED: POTASSIUM CHLORIDE 20MEQ/100ML 300 ML IV ONE (09:15)
[2017-07-21] MEDS ORDERED: ACETAMINOPHEN/CODEINE 300MG - 30MG TAB PO PRN (09:30)
[2017-07-21] MEDS ORDERED: MAGNESIUM SULFATE 2GM/50ML 50 ML IV ONE (09:30)
[2017-07-21] MEDS ORDERED: SODIUM CHLORIDE 0.9% IV ONE ×2 (10:00→10:15)
[2017-07-21] MEDS ORDERED: POTASSIUM CHLORIDE IV ONE ×2 (10:00→10:15)
[2017-07-21] MEDS ORDERED: POTASSIUM CHLORIDE 20MEQ/100ML 100 ML IV SCH (12:00)
[2017-07-21] MEDS: ENOXAPARIN SOD INJ 40 MG/0.4 ML SYR SC SCH (17:26)
--- NOTE | 2017-07-21 21:43 | Progress Note ---
DATE: July 21, 2017 PULMONARY MEDICINE PROGRESS NOTE SUBJECTIVE: Mr. Santos was seen and examined at the bedside. He continues to have slow progress. Low energy levels. However, breathing is spontaneous and without any difficulty. He did well on ice chips and his diet has been increased. REVIEW OF SYSTEMS: No bleeding, no rash. OBJECTIVE VITAL SIGNS: Afebrile. Vital signs noted per the chart record. GENERAL: No acute distress. Alert and calm. HEENT: Normocephalic and atraumatic. NECK: Supple. Throat midline. LUNGS: Bilateral air entry, few rhonchi throughout. CARDIOVASCULAR: S1, S2. No murmurs, rubs, or gallops. ABDOMEN: Soft and nontender. EXTREMITIES: No clubbing, no cyanosis. There is no edema. INTEGUMENT: No rash, no purpura. LABS: Reviewed per the chart record. IMPRESSIONS 1. Postoperative state with acute respiratory failure, resolved. 2. Pneumonia, . 3. Admit for bowel obstruction. 4. Postoperative state, status post partial colectomy and ostomy creation. 5. Postoperative ileus, expected. 6. Schizophrenia. PLAN 1. Upgrade diet as tolerated, clears. 2. We will follow up on the clear diet. 3. DVT prophylaxis will be escalated with additional heparin today. 4. Mobilize him slowly. 5. PT has been ordered for tomorrow. 6. Patient will continue to follow up. 7. Patient remains in intermediate level of care. 8. Remove the Cruz catheter and follow up for voiding. Job#: [id number] CF
[2017-07-22] VITALS: BP 115/84
[2017-07-22 04:00] VITALS: BP 127/86
[2017-07-22] MEDS: DEXTROSE 5%/0.9% SOD CHL 1,000 ML IV SCH ×2 (04:56→15:08)
[2017-07-22] MEDS: PIPER-TAZ 3.375 GM 50 ML IV SCH ×3 (05:49→21:01)
[2017-07-22 06:20] LABS: BASOPHILS % 0.2 % (0.0-1.0); HEMOGLOBIN 13.2 g/dL (14.0-18.0); LYMPHOCYTES # (AUTO) 1.5 (1.0-3.2); LYMPHOCYTES % 7.6 % (18.0-39.1); MEAN CORPUSCULAR HEMOGLOBIN 30.1 pg (28-32); MEAN CORPUSCULAR HGB CONC 33.8 g/dL (31-35); MEAN CORPUSCULAR VOLUME 88.8 fL (81-99); MONOCYTES # (AUTO) 1.6 (0.2-0.8); MONOCYTES % 8.2 % (4.4-11.3); NEUTROPHILS # (AUTO) 16.1 (2.1-6.9); NEUTROPHILS % 83.2 % (38.7-80.0); PLATELET COUNT 272 x10e3/uL (140-360); RED BLOOD COUNT 4.39 x10e6/uL (4.3-5.7); RED CELL DISTRIBUTION WIDTH 12.8 % (11.7-14.4)
[2017-07-22 06:41] LABS: ANION GAP 10.2 mmol/L (8-16); BLOOD UREA NITROGEN 6 mg/dL (7-26); BUN/CREATININE RATIO 13 (6-25); CALCIUM 7.5 mg/dL (8.4-10.2); CARBON DIOXIDE 27 mmol/L (22-29); CHLORIDE 100 mmol/L (98-107); CREATININE, SERUM 0.47 mg/dL (0.72-1.25); EST GLOMERULAR FILTRATION RATE > 60 ML/MIN (60-); GLUCOSE 98 mg/dL (74-118); MAGNESIUM 1.7 MG/DL (1.3-2.1); POTASSIUM 3.2 mmol/L (3.5-5.1); SODIUM 134 mmol/L (136-145)
[2017-07-22 07:25] LABS: LYMPHOCYTES % (MANUAL) 7 % (19-48); MONOCYTES % (MANUAL) 10 % (3.4-9.0); NEUTROPHILS % (MANUAL) 83 % (40-74)
[2017-07-22 07:26] LABS: ANISOCYTOSIS SLIGHT; PLATELET ESTIMATE ADEQUATE; PLATELET MORPHOLOGY COMMENT NORMAL; RBC MORPHOLOGY COMMENT NORMAL
[2017-07-22 08:00] VITALS: BP 127/87
[2017-07-22] MEDS: IPRATROPIUM BROMIDE 0.02% 2.5 ML NEB NEB SCH ×3 (08:00→21:27)
[2017-07-22] MEDS: FAMOTIDINE 20 MG/2 ML VIAL IV SCH (09:15)
--- NOTE | 2017-07-22 10:59 | Progress Note ---
DATE: July 22, 2017 PULMONARY MEDICINE PROGRESS NOTE SUBJECTIVE: Mr. Santos was seen and examined at bedside. He continues to have steady progress. He remains on full-liquid diet at this time, which was escalated due to tolerance of clear-liquid diet. White count remains elevated. No respiratory distress episodes. Still occasionally with a cough and some secretions that are audible. REVIEW OF SYSTEMS: No headaches, no rash. OBJECTIVE VITAL SIGNS: Afebrile. Vital signs noted per the chart record. GENERAL: No acute distress, alert and calm. HEENT: Normocephalic, atraumatic. NECK: Supple. Throat midline. LUNGS: Bilateral air entry, few rhonchi on deep breath, mostly limited. CARDIOVASCULAR: S1, S2. No murmurs, rubs, or gallops. ABDOMEN: Soft, mostly nontender, postoperative. EXTREMITIES: No clubbing. No cyanosis. There is no edema. INTEGUMENT: No rash, no purpura. LABS: Potassium 2.2, BUN 6, creatinine 0.5. White count 19, hematocrit 39. IMPRESSION 1. Postoperative state, status post partial colonic resection and ostomy creation. 2. Pneumonia, large. 3. Severe protein-calorie malnutrition. 4. Schizophrenia. PLAN: Continue to mobilize the patient as needed postoperatively. We will follow along closely. He needs continued surveillance of his white count. Patient will also get some additional potassium today. He remains in slowly intervened condition. Continue to followup GI output while he is on this new diet. Job#: [id number] RUPERT
[2017-07-22 13:12] VITALS: BP 127/85
[2017-07-22] MEDS ORDERED: POTASSIUM CHLORIDE 20 MEQ TAB CR PO ONE (14:00)
[2017-07-22 16:00] VITALS: BP 123/81
[2017-07-22] MEDS: ENOXAPARIN SOD INJ 40 MG/0.4 ML SYR SC SCH (17:21)
[2017-07-22 19:42] VITALS: BP 131/86
[2017-07-22] MEDS: LOXAPINE SUCCINATE 10 MG PO SCH (21:00)
[2017-07-22] MEDS: RISPERIDONE 1 MG TAB PO SCH (21:00)
[2017-07-23] VITALS (7 sets, daily range): BP systolic 111–136; BP diastolic 63–87
[2017-07-23] MEDS: DEXTROSE 5%/0.9% SOD CHL 1,000 ML IV SCH ×4 (01:25→08:30)
[2017-07-23 05:57] LABS: ANION GAP 13.5 mmol/L (8-16); BLOOD UREA NITROGEN < 5 mg/dL (7-26); CALCIUM 7.2 mg/dL (8.4-10.2); CARBON DIOXIDE 28 mmol/L (22-29); CHLORIDE 100 mmol/L (98-107); CREATININE, SERUM 0.48 mg/dL (0.72-1.25); EST GLOMERULAR FILTRATION RATE > 60 ML/MIN (60-); GLUCOSE 115 mg/dL (74-118); MAGNESIUM 1.6 MG/DL (1.3-2.1); PHOSPHORUS 2.3 MG/DL (2.3-4.7); SODIUM 139 mmol/L (136-145)
[2017-07-23 06:01] LABS: BUN/CREATININE RATIO 10 (6-25)
[2017-07-23 06:02] LABS: POTASSIUM 2.5 mmol/L (3.5-5.1)
[2017-07-23] MEDS ORDERED: POTASSIUM CHLORIDE 20 MEQ TAB CR PO STA (06:12)
[2017-07-23] MEDS: PIPER-TAZ 3.375 GM 50 ML IV SCH ×3 (06:37→21:01)
--- NOTE | 2017-07-23 06:43 | Diagnostic Imaging Report ---
EXAMINATION: CHEST SINGLE (PORTABLE) INDICATION: Pneumonia. COMPARISON: 07/21/2017 FINDINGS: TUBES and LINES: Right IJ central line catheter with tip overlying the atrial caval junction. LUNGS: Lungs are not well inflated. Persistent bibasilar opacities left greater than right suspicious for pneumonia PLEURA: Trace of left pleural effusion is suspected. HEART AND MEDIASTINUM: The cardiomediastinal silhouette is unremarkable. BONES AND SOFT TISSUES: No acute osseous lesion. Soft tissues are unremarkable. UPPER ABDOMEN: No free air under the diaphragm. IMPRESSION: Persistent bibasilar opacities left greater than right suspicious for pneumonia Signed by: Dr. Louis Tsang M.D. on 07/23/2017 6:39 AM
[2017-07-23] MEDS ORDERED: POTASSIUM CHLORIDE 20MEQ/100ML 100 ML IV ONE (06:45)
[2017-07-23] MEDS ORDERED: SODIUM CHLORIDE 0.9% 250ML 250 ML ONE (13:35)
[2017-07-23] MEDS: IPRATROPIUM BROMIDE 0.02% 2.5 ML NEB NEB SCH ×2 (13:50→22:50)
[2017-07-23] MEDS: ENOXAPARIN SOD INJ 40 MG/0.4 ML SYR SC SCH (16:47)
[2017-07-23] MEDS: ACETAMINOPHEN 325 MG TAB PO PRN (16:48)
[2017-07-23] MEDS: RISPERIDONE 1 MG TAB PO SCH (20:20)
[2017-07-23] MEDS: LOXAPINE SUCCINATE 10 MG PO SCH (21:00)
[2017-07-24] VITALS: BP 116/68
[2017-07-24 05:59] LABS: BASOPHILS % 0.3 % (0.0-1.0); EOSINOPHILS # (AUTO) 0.2 (0.0-0.4); EOSINOPHILS % 1.2 % (0.0-6.0); HEMATOCRIT 40.1 % (38.2-49.6); HEMOGLOBIN 13.6 g/dL (14.0-18.0); LYMPHOCYTES # (AUTO) 1.4 (1.0-3.2); LYMPHOCYTES % 10.9 % (18.0-39.1); MEAN CORPUSCULAR HGB CONC 33.9 g/dL (31-35); MEAN CORPUSCULAR VOLUME 88.5 fL (81-99); MONOCYTES # (AUTO) 1.6 (0.2-0.8); MONOCYTES % 12.8 % (4.4-11.3); NEUTROPHILS # (AUTO) 9.4 (2.1-6.9); NEUTROPHILS % 73.4 % (38.7-80.0); PLATELET COUNT 380 x10e3/uL (140-360); RED BLOOD COUNT 4.53 x10e6/uL (4.3-5.7); RED CELL DISTRIBUTION WIDTH 12.8 % (11.7-14.4)
[2017-07-24] MEDS: PIPER-TAZ 3.375 GM 50 ML IV SCH ×2 (06:00→14:10)
[2017-07-24 06:34] LABS: ANION GAP 12.3 mmol/L (8-16); BLOOD UREA NITROGEN 7 mg/dL (7-26); BUN/CREATININE RATIO 14 (6-25); CALCIUM 7.6 mg/dL (8.4-10.2); CARBON DIOXIDE 27 mmol/L (22-29); CHLORIDE 100 mmol/L (98-107); CREATININE, SERUM 0.51 mg/dL (0.72-1.25); EST GLOMERULAR FILTRATION RATE > 60 ML/MIN (60-); GLUCOSE 86 mg/dL (74-118); MAGNESIUM 1.7 MG/DL (1.3-2.1); POTASSIUM 3.3 mmol/L (3.5-5.1); SODIUM 136 mmol/L (136-145)
[2017-07-24] MEDS: IPRATROPIUM BROMIDE 0.02% 2.5 ML NEB NEB SCH ×2 (06:42→15:15)
[2017-07-24 07:07] LABS: EOSINOPHILS % (MANUAL) 1 % (0-7); LYMPHOCYTES % (MANUAL) 9 % (19-48); MONOCYTES % (MANUAL) 13 % (3.4-9.0); NEUTROPHILS % (MANUAL) 77 % (40-74)
[2017-07-24 07:08] LABS: ANISOCYTOSIS SLIG; PLATELET ESTIMATE ADEQUATE; POIKILOCYTOSIS SLIGHT; RBC MORPHOLOGY COMMENT NORMAL
[2017-07-24 07:09] LABS: PLATELET MORPHOLOGY COMMENT MODERATE LARGE
[2017-07-24 08:25] VITALS: BP 107/53
[2017-07-24 13:10] VITALS: BP 104/58
[2017-07-24] MEDS ORDERED: POTASSIUM CHLORIDE 20 MEQ TAB CR PO NR (13:30)
[2017-07-24] MEDS: ENOXAPARIN SOD INJ 40 MG/0.4 ML SYR SC SCH (16:58)
[2017-07-24 17:38] VITALS: BP 102/64
[2017-07-24 17:42] LABS: ANION GAP 11.6 mmol/L (8-16); BLOOD UREA NITROGEN 6 mg/dL (7-26); BUN/CREATININE RATIO 12 (6-25); CALCIUM 7.7 mg/dL (8.4-10.2); CARBON DIOXIDE 27 mmol/L (22-29); CHLORIDE 98 mmol/L (98-107); CREATININE, SERUM 0.52 mg/dL (0.72-1.25); EST GLOMERULAR FILTRATION RATE > 60 ML/MIN (60-); GLUCOSE 102 mg/dL (74-118); POTASSIUM 3.6 mmol/L (3.5-5.1); SODIUM 133 mmol/L (136-145)
[2017-07-24 20:00] VITALS: BP 110/60
[2017-07-24] MEDS: LOXAPINE SUCCINATE 10 MG PO SCH (21:03)
[2017-07-24] MEDS: RISPERIDONE 1 MG TAB PO SCH (21:03)
[2017-07-24 23:51] VITALS: BP 115/64
[2017-07-25 00:01] VITALS: BP 115/64
[2017-07-25 04:00] VITALS: BP 116/74
--- NOTE | 2017-07-25 06:35 | Diagnostic Imaging Report ---
EXAMINATION: CHEST SINGLE (PORTABLE) INDICATION: Pneumonia COMPARISON: 07/23/2017 FINDINGS: TUBES and LINES: Removal of right IJ central line. LUNGS: Lungs are not well inflated. Near resolution of bibasilar opacities compatible with atelectasis PLEURA: Trace of left pleural effusion is suspected. HEART AND MEDIASTINUM: The cardiomediastinal silhouette is unremarkable. BONES AND SOFT TISSUES: No acute osseous lesion. Soft tissues are unremarkable. UPPER ABDOMEN: No free air under the diaphragm. IMPRESSION: 1. Near resolution of bibasilar atelectasis. 2. Elevation of the left hemidiaphragm. Signed by: Dr. Louis Tsang M.D. on 07/25/2017 6:31 AM
[2017-07-25 06:50] LABS: BASOPHILS # (AUTO) 0.1 (0.0-0.1); BASOPHILS % 0.4 % (0.0-1.0); EOSINOPHILS # (AUTO) 0.2 (0.0-0.4); EOSINOPHILS % 1.4 % (0.0-6.0); HEMATOCRIT 40.4 % (38.2-49.6); HEMOGLOBIN 13.7 g/dL (14.0-18.0); LYMPHOCYTES # (AUTO) 1.8 (1.0-3.2); LYMPHOCYTES % 12.9 % (18.0-39.1); MEAN CORPUSCULAR HEMOGLOBIN 30.2 pg (28-32); MEAN CORPUSCULAR HGB CONC 33.9 g/dL (31-35); MEAN CORPUSCULAR VOLUME 89.2 fL (81-99); MONOCYTES # (AUTO) 1.8 (0.2-0.8); NEUTROPHILS # (AUTO) 9.8 (2.1-6.9); NEUTROPHILS % 70.4 % (38.7-80.0); PLATELET COUNT 482 x10e3/uL (140-360); RED BLOOD COUNT 4.53 x10e6/uL (4.3-5.7); RED CELL DISTRIBUTION WIDTH 13.1 % (11.7-14.4)
[2017-07-25] MEDS: IPRATROPIUM BROMIDE 0.02% 2.5 ML NEB NEB SCH (07:00)
[2017-07-25 08:00] VITALS: BP 115/69
[2017-07-25 09:50] VITALS: BP 115/69
[2017-07-25] MEDS ORDERED: PIPER-TAZ 3.375 GM/50 ML BAG IV SCH (11:30)
[2017-07-25 12:00] VITALS: BP 103/62
--- NOTE | 2017-07-25 12:46 | Discharge Summary ---
FINAL DIAGNOSIS: Severe large bowel obstruction due to adhesions status post partial colonic resection and colostomy. SECONDARY DIAGNOSES 1. Acute respiratory failure, resolved. 2. Pneumonia, status post Zosyn. 3. Hyponatremia, resolved. 4. Hypokalemia, resolved. 5. Hepatitis C, stable. 6. Schizophrenia, stable. CONSULTANTS 1. Dr. Tafoya, general surgery. 2. Dr. Yu, metallurgical inspector. HISTORY: Per [facility] and P. HOSPITAL COURSE: The patient was admitted with severe large bowel obstruction and dilatation. Emergent surgery was performed. Today is postoperative day #7. He did well and underwent a course of Zosyn. Currently, he is tolerating a GI soft diet. He does have a colostomy now. This is likely temporary. His leukocytosis resolved as well. The patient will follow with Dr. Tafoya in 1 to 2 weeks. I have discussed with Dr. Tafoya as well. The patient was extubated successfully after surgery. I have also discussed with Dr. Yu, and the patient will follow up with him as well. CONDITION ON DISCHARGE: Stable. DISCHARGE MEDICATIONS: Please see medication reconciliation form. ANNE REYES M.D. Job#: [id number]
== END 2017-07-25 13:34 | disposition home or self-care (01) | DRG 329 ==
LOC: ER 08:07 → ERHOLD 16:03 → MED/SURG 16:05 → ICU 07-19 00:34 → IMCU 07-19 22:48 → MED/SURG2 07-23 12:35
PROVIDERS: ADMIT Internal Medicine; ATTEND Internal Medicine
PROC: 0D1L0Z4 Bypass Transverse Colon to Cutaneous, Open Approach (ICD-10-PCS; 2017-07-18)
PROC: 0DN80ZZ Release Small Intestine, Open Approach (ICD-10-PCS; 2017-07-18)
PROC: 0DTG0ZZ Resection of Left Large Intestine, Open Approach (ICD-10-PCS; 2017-07-18)
PROC: 0WJP0ZZ Inspection of Gastrointestinal Tract, Open Approach (ICD-10-PCS; principal; 2017-07-19)
PROC: 02HV33Z Insertion of Infusion Device into Superior Vena Cava, Percutaneous Approach (ICD-10-PCS; principal; 2017-07-19)
PROC: 0BH17EZ Insertion of Endotracheal Airway into Trachea, Via Natural or Artificial Opening (ICD-10-PCS; principal; 2017-07-19)
PROC: 5A1935Z Respiratory Ventilation, Less than 24 Consecutive Hours (ICD-10-PCS; principal; 2017-07-19)
DX: K56.50 Intestinal adhesions [bands], unspecified as to partial versus complete obstruction (principal); J96.00 Acute respiratory failure, unspecified whether with hypoxia or hypercapnia; J69.0 Pneumonitis due to inhalation of food and vomit; E43 Unspecified severe protein-calorie malnutrition; E87.1 Hypo-osmolality and hyponatremia; K56.7 Ileus, unspecified; F20.9 Schizophrenia, unspecified; Z68.20 Body mass index [BMI] 20.0-20.9, adult; E87.6 Hypokalemia; B19.20 Unspecified viral hepatitis C without hepatic coma; F17.200 Nicotine dependence, unspecified, uncomplicated
CPT/HCPCS: 36415; 36600; 71045; 74018; 74177; 80048; 80053; 80076; 81001; 82150; 82805; 82948; 83605; 83615; 83690; 83735; 84100; 84443; 85025; 85610; 85730; 86850; 86900; 86920; 87040; 87070; 87086; 87116; 87205; 87206; 87390; 88307; 88309; 93005; 94002; 94003; 94640; 96361; 96366; 96374; 97139; 99285; G0433; G0435; J0694; J1100; J1650; J2001; J2250; J2405; J2543; J3370; J3480; J7030; J7040; J7042; J7050; Q9967